=== PATIENT | male | born 1945 | race Hispanic/Latino ===

== ENCOUNTER 2018-12-18 23:56 | Emergency (ER) | payer MEDICARE ==
--- NOTE | 2018-12-19 00:26 | Emergency Department Report ---
ED General Adult HPI - General Chief complaint: Weakness Stated complaint: AMS/FLU SYMPTOMS Time Seen by Provider: 12/19/18 00:14 Source: EMS Mode of arrival: Stretcher Limitations: Altered Mental Status - History of Present Illness Initial comments: Patient is a 73-year-old male past medical history of COPD and dementia who presents with coughing and weakness has been going on for a couple weeks. History is obtained by patient's daughter. Patient's daughter states that patient has been coughing and having productive green sputum. Patient also has not been having much of an appetite lately. Patient was alone with his daughter. Patient currently is not in any pain. - Related Data Home Medications Medication Instructions Recorded Confirmed Last Taken Filgrastim Nicu (30 Mcg/ml) 480 mcg SUB-Q QWEEK 11/12/13 01/10/14 01/06/14 22:00 [Neupogen Nicu] 480 MCG Cyanocobalamin/Folic Acid [Vitamin 1 each PO DAILY 01/10/14 01/10/14 Unknown T15-[id number] Acid Tablet] Diphenoxylate HCl/Atropine 1 tab PO TID PRN 01/10/14 01/10/14 01/10/14 10:00 [Lomotil 2.5-0.025 mg Tablet] 1 TAB Donepezil [Aricept] 10 mg PO QDAY 01/10/14 01/10/14 01/10/14 10:00 Memantine [Namenda] 10 mg PO BID 01/10/14 01/10/14 01/10/14 10:00 10 MG Multivitamin [Multi-Vitamin Daily] 1 tab PO QDAY 01/10/14 01/10/14 Unknown Bentley-3 Fatty Acids/Fish Oil [Fish 1 each PO DAILY 01/10/14 01/10/14 Unknown Oil] Quetiapine Fumarate [Seroquel Xr] 50 mg PO QHS 01/10/14 01/10/14 01/09/14 22:00 miSOPROStol [Cytotec] 1 tab PO TID 01/10/14 01/10/14 01/10/14 10:00 100 MCG risperiDONE [RisperDAL] 1 mg PO QHS 01/10/14 01/10/14 01/09/14 22:00 1MG Previous Rx's Medication Instructions Recorded Last Taken Type HYDROcodone/APAP 7.5-325 [[place] 1 each PO Q12H PRN #20 tablet 01/14/14 Unknown Rx 7.5-325 mg TAB] Pantoprazole [Protonix] 40 mg PO QDAY #30 tablet 01/14/14 Unknown Rx levoFLOXacin [Levaquin] 500 mg PO QDAY #7 tablet 01/14/14 Unknown Rx metroNIDAZOLE [Flagyl] 500 mg PO Q8HR #21 tablet 01/14/14 Unknown Rx ALBUTEROL Inhaler (OR & NICU) 1 puff IH Q6H #1 inha 12/19/18 Unknown Rx [ProAir HFA Inhaler] ALBUTEROL NEB's [Proventil 0.083% 2.5 mg IH TID PRN #1 box 12/19/18 Unknown Rx NEBS] Mirtazapine [Remeron] 15 mg PO QDAY #20 tablet 12/19/18 Unknown Rx predniSONE [Deltasone] 20 mg PO BID #10 tab 12/19/18 Unknown Rx Allergies Allergy/AdvReac Type Severity Reaction Status Date / Time Penicillins Allergy Angioedema Verified 11/12/13 13:14 ED Review of Systems ROS: Stated complaint: AMS/FLU SYMPTOMS Other details as noted in HPI Comment: Unobtainable due to pts medical conditions (dementiA) ED Past Medical Hx - Past Medical History Previous Medical History?: Yes Hx CVA: Yes Hx Arthritis: Yes Hx Psychiatric Treatment: Yes (schizo) Hx COPD: Yes Hx Dementia: Yes Additional medical history: Myelodysplastic syndrome - Surgical History Past Surgical History?: Yes Additional Surgical History: Back - Social History Smoking Status: Former Smoker Substance Use Type: None - Medications Home Medications: Home Medications Medication Instructions Recorded Confirmed Last Taken Type Filgrastim Nicu (30 Mcg/ml) 480 mcg SUB-Q QWEEK 11/12/13 01/10/14 01/06/14 22:00 History [Neupogen Nicu] 480 MCG Cyanocobalamin/Folic Acid [Vitamin 1 each PO DAILY 01/10/14 01/10/14 Unknown History P39-Onvhm Acid Tablet] Diphenoxylate HCl/Atropine 1 tab PO TID PRN 01/10/14 01/10/14 01/10/14 10:00 History [Lomotil 2.5-0.025 mg Tablet] 1 TAB Donepezil [Aricept] 10 mg PO QDAY 01/10/14 01/10/14 01/10/14 10:00 History Memantine [Namenda] 10 mg PO BID 01/10/14 01/10/14 01/10/14 10:00 History 10 MG Multivitamin [Multi-Vitamin Daily] 1 tab PO QDAY 01/10/14 01/10/14 Unknown History Bentley-3 Fatty Acids/Fish Oil [Fish 1 each PO DAILY 01/10/14 01/10/14 Unknown History Oil] Quetiapine Fumarate [Seroquel Xr] 50 mg PO QHS 01/10/14 01/10/14 01/09/14 22:00 History miSOPROStol [Cytotec] 1 tab PO TID 01/10/14 01/10/14 01/10/14 10:00 History 100 MCG risperiDONE [RisperDAL] 1 mg PO QHS 01/10/14 01/10/14 01/09/14 22:00 History 1MG HYDROcodone/APAP 7.5-325 [[place] 1 each PO Q12H PRN #20 tablet 01/14/14 Unknown Rx 7.5-325 mg TAB] Pantoprazole [Protonix] 40 mg PO QDAY #30 tablet 01/14/14 Unknown Rx levoFLOXacin [Levaquin] 500 mg PO QDAY #7 tablet 01/14/14 Unknown Rx metroNIDAZOLE [Flagyl] 500 mg PO Q8HR #21 tablet 01/14/14 Unknown Rx ALBUTEROL Inhaler (OR & NICU) 1 puff IH Q6H #1 inha 12/19/18 Unknown Rx [ProAir HFA Inhaler] ALBUTEROL NEB's [Proventil 0.083% 2.5 mg IH TID PRN #1 box 12/19/18 Unknown Rx NEBS] Mirtazapine [Remeron] 15 mg PO QDAY #20 tablet 12/19/18 Unknown Rx predniSONE [Deltasone] 20 mg PO BID #10 tab 12/19/18 Unknown Rx ED Physical Exam - General Limitations: Altered Mental Status General appearance: alert, in no apparent distress - Head Head exam: Present: atraumatic, normocephalic - Eye Eye exam: Present: normal appearance - ENT ENT exam: Present: mucous membranes moist - Neck Neck exam: Present: normal inspection - Respiratory Respiratory exam: Present: normal lung sounds bilaterally. Absent: respiratory distress - Cardiovascular Cardiovascular Exam: Present: regular rate, normal rhythm. Absent: systolic murmur, diastolic murmur, rubs, gallop - GI/Abdominal GI/Abdominal exam: Present: soft, normal bowel sounds - Rectal Rectal exam: Present: deferred - Extremities Exam Extremities exam: Present: normal inspection - Back Exam Back exam: Present: normal inspection - Neurological Exam Neurological exam: Present: alert, oriented X3 - Psychiatric Psychiatric exam: Present: normal affect, normal mood - Skin Skin exam: Present: warm, dry, intact, normal color. Absent: rash ED Course Vital Signs 12/19/18 12/19/18 12/19/18 00:14 01:00 02:00 Temperature 98 F Pulse Rate 81 84 77 Respiratory 22 21 20 Rate Blood Pressure 93/57 94/63 91/59 Blood Pressure 93/57 [Left] O2 Sat by Pulse 99 Oximetry 12/19/18 03:00 Temperature Pulse Rate 79 Respiratory 20 Rate Blood Pressure 95/57 Blood Pressure [Left] O2 Sat by Pulse 97 Oximetry ED Medical Decision Making - Lab Data Result diagrams: 12/19/18 00:32 12/19/18 00:31 Lab Results 12/19/18 12/19/18 12/19/18 Range/Units 00:21 00:31 00:32 WBC 13.3 H (4.5-11.0) K/mm3 RBC 3.25 L (3.65-5.03) M/mm3 Hgb 11.0 L (11.8-15.2) gm/dl Hct 33.3 L (35.5-45.6) % MCV 103 H (84-94) fl MCH 34 H (28-32) pg MCHC 33 (32-34) % RDW 15.3 H (13.2-15.2) % Plt Count 104 L (140-440) K/mm3 Lymph % (Auto) Industry Segment Specialist Wake % (Auto) Industry Segment Specialist Eos % (Auto) Industry Segment Specialist Baso % (Auto) Industry Segment Specialist Lymph # Industry Segment Specialist Wake # Industry Segment Specialist Eos # Industry Segment Specialist Baso # Industry Segment Specialist Add Manual Diff Complete Total Counted 100 Seg Neutrophils % Industry Segment Specialist Seg Neuts % (Manual) 65.0 (40.0-70.0) % Band Neutrophils % 9.0 % Lymphocytes % (Manual) 9.0 L (13.4-35.0) % Reactive Lymphs % (Man) 0 % Monocytes % (Manual) 1.0 (0.0-7.3) % Eosinophils % (Manual) 0 (0.0-4.3) % Basophils % (Manual) 0 (0.0-1.8) % Metamyelocytes % 11.0 % Myelocytes % 4.0 % Promyelocytes % 1.0 % Blast Cells % 0 % Nucleated RBC % 1.0 H (0.0-0.9) % Seg Neutrophils # Industry Segment Specialist Seg Neutrophils # Man 8.6 H (1.8-7.7) K/mm3 Band Neutrophils # 1.2 K/mm3 Lymphocytes # (Manual) 1.2 (1.2-5.4) K/mm3 Abs React Lymphs (Man) 0.0 K/mm3 Monocytes # (Manual) 0.1 (0.0-0.8) K/mm3 Eosinophils # (Manual) 0.0 (0.0-0.4) K/mm3 Basophils # (Manual) 0.0 (0.0-0.1) K/mm3 Metamyelocytes # 1.5 K/mm3 Myelocytes # 0.5 K/mm3 Promyelocytes # 0.1 K/mm3 Blast Cells # 0.0 K/mm3 WBC Morphology Not Reportable Hypersegmented Neuts Not Reportable Hyposegmented Neuts Not Reportable Hypogranular Neuts Not Reportable Smudge Cells Not Reportable Toxic Granulation Not Reportable Toxic Vacuolation Not Reportable Dohle Bodies Not Reportable Pelger-Huet Anomaly Not Reportable Krzysztof Rods Not Reportable Platelet Estimate Appears decreased Clumped Platelets Not Reportable Plt Clumps, EDTA Not Reportable Large Platelets Not Reportable Giant Platelets Not Reportable Platelet Satelliting Not Reportable Plt Morphology Comment Not Reportable RBC Morphology Not Reportable Dimorphic RBCs Not Reportable Polychromasia Not Reportable Hypochromasia Not Reportable Poikilocytosis Not Reportable Anisocytosis 1+ Microcytosis Not Reportable Macrocytosis 1+ Spherocytes Not Reportable Pappenheimer Bodies Not Reportable Sickle Cells Not Reportable Target Cells Not Reportable Tear Drop Cells Rare Ovalocytes 1+ Stomatocytes Few Helmet Cells Not Reportable Plata-Blacktail Bodies Not Reportable Calpine Rings Not Reportable [place] Cells Not Reportable Bite Cells Not Reportable Crenated Cell Not Reportable Elliptocytes Not Reportable Acanthocytes (Spur) Not Reportable Rouleaux Not Reportable Hemoglobin C Crystals Not Reportable Schistocytes Not Reportable Malaria parasites Not Reportable Emeka Bodies Not Reportable Hem Pathologist Commnt No Sodium 133 L (137-145) mmol/L Potassium 3.3 L (3.6-5.0) mmol/L Chloride 90.7 L (98-107) mmol/L Carbon Dioxide 26 (22-30) mmol/L Anion Gap 20 mmol/L BUN 24 H (9-20) mg/dL Creatinine 0.9 (0.8-1.5) mg/dL Estimated GFR > 60 ml/min BUN/Creatinine Ratio 27 % Glucose 128 H (75-100) mg/dL Calcium 8.6 (8.4-10.2) mg/dL Troponin T < 0.010 (0.00-0.029) ng/mL Influenza A (Rapid) Negative (Negative) Influenza B (Rapid) Negative (Negative) - Radiology Data Radiology results: report reviewed, image reviewed Chest x-ray shows no acute cardiopulmonary disease - Medical Decision Making Chief medical diagnosis: Chronic bronchitis Differential diagnosis: COPD exacerbation, electrolyte abnormality, deconditioning I will get CBC BMP chest x-ray I'll also send patient home with Remeron and prednisone. Patient's lab work is unremarkable Discussed plan with patient patient's nurse care manager they agree with plan. Critical care attestation.: If time is entered above; I have spent that time in minutes in the direct care of this critically ill patient, excluding procedure time. ED Disposition Clinical Impression: Cough, Generalized weakness COPD (chronic obstructive pulmonary disease) Qualifiers: COPD type: unspecified COPD Qualified Code(s): J44.9 - Chronic obstructive pulmonary disease, unspecified Disposition: DC-01 TO HOME OR SELFCARE Is pt being admited?: No Does the pt Need Aspirin: No Condition: Stable Instructions: Chronic Obstructive Pulmonary Disease (ED) Prescriptions: ALBUTEROL Inhaler (OR & NICU) [ProAir HFA Inhaler] 1 puff IH Q6H #1 inha ALBUTEROL NEB's [Proventil 0.083% NEBS] 2.5 mg IH TID PRN #1 box PRN Reason: Wheezing Mirtazapine [Remeron] 15 mg PO QDAY #20 tablet predniSONE [Deltasone] 20 mg PO BID #10 tab Referrals: TATY DUVAL MD [Primary Care Provider] - 3-5 Days
--- NOTE | 2018-12-19 00:45 | XRay Report ---
FINAL REPORT PROCEDURE: XR CHEST 1V AP TECHNIQUE: Chest radiograph anteroposterior view. CPT 82789 HISTORY: weakness COMPARISON: No prior studies are available for comparison. FINDINGS: Heart: Normal. Mediastinum/Vessels: Normal. Lungs/Pleural space: Normal. Bony thorax: No acute osseous abnormality. Life support devices: None. IMPRESSION: No acute cardiopulmonary abnormality.
[2018-12-19 00:59] LABS: Hematocrit 33.3 % (35.5-45.6); Mean Corpuscular HGB Conc 33 % (32-34); Mean Corpuscular Volume 103 fl (84-94); Platelet Count 104 K/mm3 (140-440); Red Blood Count 3.25 M/mm3 (3.65-5.03); Red Cell Distribution Width 15.3 % (13.2-15.2)
[2018-12-19 01:36] LABS: BUN/Creatinine Ratio 27; Blood Urea Nitrogen 24 mg/dL (9-20); Calcium 8.6 mg/dL (8.4-10.2); Hemolysis Index 11
[2018-12-19 01:50] LABS: Anisocytosis 1+; Band Neutrophils # (Manual) 1.2 K/mm3; Basophils % (Manual) 0 % (0.0-1.8); Eosinophils % (Manual) 0 % (0.0-4.3); Macrocytosis 1+; Myelocytes # (Manual) 0.5 K/mm3; Promyelocytes # (Manual) 0.1 K/mm3; Stomatocytes Few; Total Cells Counted 100
[2018-12-19 01:51] LABS: Ovalocytes 1+; Platelet Estimate Appears Decreased; Tear Drop Cells Rare
[2018-12-19 03:11] VITALS: BP 95/57
== END 2018-12-19 03:30 | disposition home or self-care (01) ==
LOC: ED 23:56
DX: J44.9 Chronic obstructive pulmonary disease, unspecified (principal); R53.1 Weakness; M19.90 Unspecified osteoarthritis, unspecified site; Z86.73 Personal history of transient ischemic attack (TIA), and cerebral infarction without residual deficits; F20.9 Schizophrenia, unspecified; F03.90 Unspecified dementia, unspecified severity, without behavioral disturbance, psychotic disturbance, mood disturbance, and anxiety; Z88.0 Allergy status to penicillin
CPT/HCPCS: 36415; 71045; 80048; 84484; 85007; 85025; 87400